=== PATIENT | male | born 1995 | race Two or more races ===

== ENCOUNTER 2024-10-03 09:01 | Inpatient (IN) | payer MEDICAID ==
[~2024-10-03] VITALS: Ht 175.3 cm; Wt 101.0 kg
[2024-10-03] MEDS: InsuLIN REG 1unit/0.01ml Soln (100units/ml) IV ONE (09:15)
--- NOTE | 2024-10-03 09:23 | ED.PDOC ---
History of Present Illness HPI Comments 28 y/o M, presents to the ED for CC of high blood sugar reading. Patient states, he has been experiencing uncontrolled diabetes resulting in hyperglycemia with associated blurred vision x1year. Patient endorses on, losing his medical insurance coverage and being unable to obtain his prescription medications as a result. Patient comments on new symptoms of penile abrasions surrounding the tip of his penis. Patient relays current 8/10 pain. Patient denies fever, body- aches, back pain, flank pain, hematuria, or dysuria. Patient denies social history. No other associated symptom's, modifiers, recent injuries or sick contacts at this time. Time Seen by MD: 09:10 Reviewed Notes: Nurses Notes, Medications, Allergies Allergies: Coded Allergies: NO KNOWN ALLERGIES (Unverified , 10/03/24) Information Source: Patient Mode of Arrival: Ambulatory Severity: Moderate Timing: Months Duration: Since onset Prehospital treatment: None Past Medical History PAST MEDICAL HISTORY: DM Surgical History: Cholecystectomy Surgical History (Other): LEFT FOOT Family History Family History: Unknown Social History Smoker: Non-Smoker Alcohol: Denies ETOH Use Drugs: Denies Drug Use Lives In: Home Constitutional: denies: chills, diaphoresis, fatigue, fever, malaise, sweats, weakness, others EENTM: denies: blurred vision, double vision, ear bleeding, ear discharge, ear drainage, ear pain, ear ringing, eye pain, eye redness, hearing loss, mouth pain, mouth swelling, nasal discharge, nose bleeding, nose congestion, nose pa in, photophobia, tearing, throat pain, throat swelling, voice changes, others Respiratory: denies: cough, hemoptysis, orthopnea, SOB at rest, shortness of breath, SOB with excertion, stridor, wheezing, others Cardiovascular: denies: chest pain, dizzy spells, diaphoresis, Dyspnea on exertion, edema, irregular heart beat, left arm pain, lightheadedness, palpitations, PND, syncope, others Gastrointestinal: denies: abdomen distended, abdominal pain, blood streaked bowels, constipated, diarrhea, dysphagia, difficulty swallowing, hematemesis, melena, nausea, poor appetite, poor fluid intake, rectal bleeding, rectal pain, vomiting, others Genitourinary: denies: burning, dysuria, flank pain, frequency, hematuria, incontinence, penile discharge, penile sore, pain, testicle pain, testicle swelling, urgency, others Neurological: denies: dizziness, fainting, headache, left sided numbness, left sided weakness, numbness, paresthesia, pre-existing deficit, right sided numbness, right sided weakness, seizure, speech problems, tingling, tremors, weakness, others Musculoskeletal: denies: back pain, gout, joint pain, joint swelling, muscle pain, muscle stiffness, neck pain, others Integumetry: denies: bruises, change in color, change in hair/nails, dryness, laceration, lesions, lumps, rash, wounds, others Allergic/Immunocompromised: denies: Difficulty Healing, Frequent Infections, Hives, Itching, others Hematologic/Lymphatic: denies: anemia, blood clots, easy bleeding, easy bruising, swollen glands, others Endocrine: denies: excessive hunger, excessive sweating, excessive thirst, excessive urination, flushing, intolerance to cold, intolerance to heat, unexplained weight gain, unexplained weight loss, others Psychiatric: denies: anxiety, bipolar disorder, depression, hopeless, panic disorder, schizophrenia, sleepless, suicidal, others All Other Systems: Reviewed and Negative Physical Exam General Appearance: Moderate Distress HEENT: Normal ENT Inspection, Pharynx Normal, TMs Normal Neck: Full Range of Motion, Non-Tender, Normal, Normal Inspection Respiratory: Chest Non-Tender, Lungs Clear, No Accessory Muscle Use, No Respiratory Distress, Normal Breath Sounds Cardiovascular: No Edema, No JVD, No Murmur, No Gallop, Normal Peripheral Pulses, Tachycardia Breast Exam: Deferred Gastrointestinal: No Organomegaly, Non Tender, No Pulsatile Mass, Normal Bowel Sounds, Soft Genitalia: Deferred Pelvic: Deferred Rectal: Deferred Extremities: No calf tenderness, Normal capillary refill, Normal inspection, Normal range of motion, Non-tender, No pedal edema Musculoskeletal : Apperance: Normal Neurologic: Alert, sprinkling system installer II-XII nml as Tested, No Motor Deficits, Normal Affect, Normal Mood, No Sensory Deficits Cerebellar Function: Normal Reflexes: Normal Skin: Dry, Normal Color, Warm Peripheral Pulses: 3+ Radial (R), 3+ Radial (L) Lymphatic: No Adenopathy Was a procedure done? Was a procedure done?: No Differential Dx Considerations may include: HYPERGLYCEMIA, DKA, UNCONTROLLED DM1 X-Ray, Labs, Meds, VS Vital Signs Date Time Temp Pulse Resp B/P (MAP) Pulse Ox O2 Delivery O2 Flow Rate FiO2 10/03/24 09:33 Room Air* 0 21 10/03/24 09:20 97.8 104 18 137/90 (106) 97 Lab Test 10/03/24 09:30 10/03/24 09:26 10/03/24 09:11 10/03/24 09:10 Range/Units White Blood Count 5.5 4.4-10.8 10^3/uL Red Blood Count 5.60 4.5-5.90 10^6/uL Hemoglobin 17.2 13.5-17.5 g/dL Hematocrit 46.5 41.0-53.0 % Mean Corpuscular Volume 83.0 80.0-100.0 fL Mean Corpuscular Hemoglobin 30.8 28.0-32.0 pg Mean Corpuscular Hemoglobin Concent 37.1 H 32.0-36.0 g/dL Red Cell Distribution Width 12.8 11.8-14.3 % Platelet Count 184 140-450 10^3/uL Mean Platelet Volume 9.8 6.9-10.8 fL Neutrophils (%) (Auto) 70.4 37.0-80.0 % Lymphocytes (%) (Auto) 21.8 10.0-50.0 % Monocytes (%) (Auto) 6.7 0.0-12.0 % Eosinophils (%) (Auto) 0.6 0.0-7.0 % Basophils (%) (Auto) 0.5 0.0-2.0 % Neutrophils # (Auto) 3.9 1.6-8.6 10 ^3/uL Lymphocytes # (Auto) 1.2 0.4-5.4 10 ^3/uL Monocytes # (Auto) 0.4 0-1.3 10 ^3/uL Eosinophils # (Auto) 0 0-0.8 10 ^3/uL Basophils # (Auto) 0 0-0.2 10 ^3/uL Nucleated Red Blood Cells 0.3 % POC Glucose 506 *H 456 *H 502 *H 70-106 mg/dl Test 10/03/24 09:08 Range/Units Sodium Level 128 L 136-145 mmol/L Potassium Level 3.8 3.5-5.1 mmol/L Chloride Level 93 L 98-107 mmol/L Carbon Dioxide Level < 10 *L 20-31 mmol/L Anion Gap 25.67292 H 5-15 Blood Urea Nitrogen 12 9-23 mg/dL Creatinine 1.27 0.700-1.30 mg/dL Glomerular Filtration Rate Calc 79 >90 mL/min BUN/Creatinine Ratio 9.4 L 10.0-20.0 Serum Glucose 485 *H 74-106 mg/dL Calcium Level 10.2 8.7-10.4 mg/dL Current Medications Medications (Trade) Dose Ordered Sig/Yash Route Start Time Stop Time Status Last Admin Sodium Chloride 1,000 ml @ 1,000 mls/hr Q1H ONCE IV 10/03/24 09:15 10/03/24 10:14 DC 10/03/24 09:30 Sodium Chloride 1,000 ml @ 1,000 mls/hr Q1H ONCE IV 10/03/24 10:15 10/03/24 11:14 10/03/24 10:08 Patient alert. Blood sugar elevated. He does not take care himself. Vitals stable. He has been almost a year since he used insulin. Establish intravenous access. Was given fluids. Was given insulin. Explained to the patient. Continue monitoring. Time of 1ST Reevaluation: 09:40 Reevaluation 1ST: Unchanged Patient Education/Counseling: Diagnosis, Treatment Family Education/Counseling: No Family Present Additional Information I reviewed the following notes from patient's past medical history: NONE The following tests were ordered, and results were reviewed by me: CBC, BMP I discussed treatment and results with medical personnel and: PATIENT Departure 1 Departure Time of Disposition: 09:26 Impression: Primary Impression: Diabetic ketoacidosis Qualified Codes: E13.10 - Other specified diabetes mellitus with ketoacidosis without coma Disposition: ADMITTED INPATIENT Admit to: Med Surg Condition: Guarded Critical Care Note Critical Care Time?: Yes (90 min-critical care time only) Critical care comment: Started insulin Stability Stability form required: No Heart Score Heart Score: Heart Score Response (Comments) Value History N/A 0 EKG N/A 0 Age N/A 0 Risk Factors N/A 0 Troponin N/A 0 Total 0 I personally scribed for CHAD LEMON MD ([email or web address]) on 10/03/24 at 09:23. Electronically submitted by Lori Araujo ([email or web address]). I personally scribed for CHAD LEMON MD ([email or web address]) on 10/03/24 at 09:32. Electronically submitted by Lori Araujo ([email or web address]). CHAD LEMON MD Oct 03, 2024 09:23
[2024-10-03] MEDS: SODIUM CHLORIDE 0.9% 1,000 ML IV ONE ×2 (09:30→10:08)
[2024-10-03 10:15] LABS: Basophils # (auto) 0 10 ^3/uL (0-0.2); Eosinophils # (auto) 0 10 ^3/uL (0-0.8); Lymphocytes # (auto) 1.2 10 ^3/uL (0.4-5.4); Monocytes # (auto) 0.4 10 ^3/uL (0-1.3); White Blood Cell 5.5 10^3/uL (4.4-10.8)
[2024-10-03 10:18] LABS: Basophils % (auto) 0.5 % (0.0-2.0); Eosinophils % (auto) 0.6 % (0.0-7.0); Hematocrit 46.5 % (41.0-53.0); Hemoglobin 17.2 g/dL (13.5-17.5); Lymphocytes % (auto) 21.8 % (10.0-50.0); Mean Corpuscular Hemoglobin 30.8 pg (28.0-32.0); Monocytes % (auto) 6.7 % (0.0-12.0); Neutrophils # (auto) 3.9 10 ^3/uL (1.6-8.6); Neutrophils % (auto) 70.4 % (37.0-80.0); Nucleated Red Blood Cells % 0.3 %; Platelet Count (auto) 184 10^3/uL (140-450); Red Cell Distribution Width 12.8 % (11.8-14.3)
[2024-10-03 10:19] LABS: Mean Corpuscular Hgb Conc. 37.1 g/dL (32.0-36.0)
[2024-10-03 10:24] LABS: Potassium 3.8 mmol/L (3.5-5.1)
[2024-10-03 10:25] LABS: Anion Gap 25.00001 (5-15); Calcium 10.2 mg/dL (8.7-10.4)
[2024-10-03 10:30] LABS: BUN/Creatinine Ratio 9.4 (10.0-20.0); Blood Urea Nitrogen 12 mg/dL (9-23)
[2024-10-03 10:44] LABS: Chloride 93 mmol/L (98-107); Sodium 128 mmol/L (136-145)
[2024-10-03 10:48] LABS: Carbon Dioxide < 10 mmol/L (20-31)
[2024-10-03 10:49] LABS: Glucose 485 mg/dL (74-106)
[2024-10-03] MEDS ORDERED: DEXTROSE (50%) 50ML SYRG IV PRN (11:00)
[2024-10-03] MEDS: INSULIN LANTUS (GLARGINE) 1 /0.01ml (100units/ml) SC ONE (11:07)
[2024-10-03] MEDS: INSULIN DRIP 100 UNIT/100ML 100 ML IV SCH (11:27)
[2024-10-03 11:34] LABS: Base Excess -2.5 mmol/L (-2.0-3.0)
[2024-10-03] MEDS ORDERED: ONDANSETRON HCL 4 MG/2 ML VIAL IV PRN (13:00)
--- NOTE | 2024-10-03 13:04 | DVHHP2 ---
History of Present Illness Reason for Visit: High blood sugar History of Present Illness Jalen Davis JR is a 20-year-old male with past medical history of diabetes who presents to the ED with hyperglycemia and blurred vision x1 week. Patient reports that he ran out of his insulin and strips 1 year ago due to no insurance from a loss of job. He states that he was with [employer]. Patient also reports penile abrasions on the foreskin in which he is uncircumcised. Patient reports that he has 1 partner which is his fiancee whom he lives with. Patient denies any trauma or injury to the site, denies fevers, chills, weakness, lightheadedness, dizziness, increased thirst, shortness of breath, chest pain, abdominal pain, nausea, vomiting, and diarrhea. Endocrine: Diabetes Past Surgical History: None Family History: DM, Other (Mom and dad with diabetes) Smoke: Quit ALCOHOL: occassional Drugs: None Lives: with Family Domestic Violence: Neg Review of Systems Constitutional: No: Fever, Chills, Sweats, Weakness, Malaise, Other Eyes: Vision change; No: Pain, Conjunctivae inflammation, Eyelid inflammation, Other, Redness ENT: No: Ear pain, Ear discharge, Nose pain, Nose discharge, Nose congestion, Mouth pain, Mouth swelling, Throat pain, Throat swelling, Other Respiratory: No: Cough, Dry, Shortness of breath, SOB with excertion, Wheezing, Hemoptysis, Pleuritic Pain, Sputum, Wheezing, Other Cardiovascular: No: Chest Pain, Palpitations, Orthopnea, Paroxysmal Noc. Dyspnea, Edema, Lt Headedness, Other Gastrointestinal: No: Nausea, Vomiting, Abdominal Pain, Diarrhea, Constipation, Melena, Hematochezia, Other Genitourinary: No Dysuria; Frequency; No Incontinence, No Hematuria, No Retention, No Other Musculoskeletal: No: other, neck pain, shoulder pain, arm pain, back pain, hand pain, leg pain, foot pain Skin: Other (Penile abrasions); No: Rash, Lesions, Jaundice, Bruising Neurological: No: Weakness, Numbness, Incoordination, Change in speech, Confusion, Seizures, Other Allergies: Coded Allergies: NO KNOWN ALLERGIES (Unverified , 10/03/24) Medications Current Medications Medications Dose Ordered Sig/Yash Route Start Time Stop Time Status Last Admin Dose Admin Insulin Human (Reg)/Sodium Chloride 100 ml @ 0.5 mls/hr Q24H IV 10/03/24 11:00 10/03/24 11:27 4 MLS/HR Diagnostic Test (Pha) 1 strip Q90MIN 10/03/24 12:00 Dextrose 50 ml PRN PRN IV 10/03/24 11:00 Insulin Glargine 15 units DAILY SC 10/04/24 10:00 Exam Vital Signs Vital Signs Date Time Temp Pulse Resp B/P (MAP) Pulse Ox O2 Delivery O2 Flow Rate FiO2 10/03/24 11:09 98.2 83 18 135/90 (105) 97 98.2 10/03/24 09:33 Room Air* 0 21 General Appearance: Alert, Oriented X3, Cooperative, No acute distress HEENT: Atraumatic, PERRLA, EOMI, Mucous membr. moist/pink Respiratory: Clear to auscultation, Normal air movement Cardiovascular: Normal S1, Normal S2, No murmurs Abdominal: Normal bowel sounds, Soft, No tenderness, No hepatospenomegaly, No masses Extremities: No clubbing, No cyanosis, No edema, Normal pulses, No tenderne ss/swelling Neuro: Normal gait, Normal speech, Strength at 5/5 X4 ext, Normal tone, Sensation intact Psych/Mental Status: Mental status NL, Mood NL Labs/Xrays Labs Test 10/03/24 11:26 10/03/24 11:00 10/03/24 10:49 10/03/24 09:30 Range/Units Blood Gas Specimen Type Arterial Blood Gas Sample Site Right radial Blood Gas Patient Temperature 37.0 Arterial Blood Date Drawn [id number] Arterial Blood pH 7.436 7.350-7.450 Arterial Blood Partial Pressure CO2 31.2 L 35.0-48.0 mmHg Arterial Blood Partial Pressure O2 91.9 83.0-108.0 mmHg Arterial Blood HCO3 20.5 L 21.0-28.0 mmol/L Arterial Blood Oxygen Saturation 97.2 94.0-98.0 % Arterial Blood Base Excess -2.5 L -2.0-3.0 mmol/L Arterial Blood Oxyhemoglobin 96.1 94.0-98.0 % Arterial Blood Carboxyhemoglobin 0.6 0.5-1.5 % Arterial Blood Methemoglobin 0.5 0.0-1.5 % Souleymane Test Yes Blood Gas Total Hemoglobin 16.00 13.5-17.5 g/dL Blood Gas Liter Flow 0.00 Blood Gas Modality Room air FiO2 % 21.0 POC Glucose 351 H 70-106 mg/dl Beta-Hydroxybutyric Acid 0.841 H < 0.4 mmol/L White Blood Count 5.5 4.4-10.8 10^3/uL Red Blood Count 5.60 4.5-5.90 10^6/uL Hemoglobin 17.2 13.5-17.5 g/dL Hematocrit 46.5 41.0-53.0 % Mean Corpuscular Volume 83.0 80.0-100.0 fL Mean Corpuscular Hemoglobin 30.8 28.0-32.0 pg Mean Corpuscular Hemoglobin Concent 37.1 H 32.0-36.0 g/dL Red Cell Distribution Width 12.8 11.8-14.3 % Platelet Count 184 140-450 10^3/uL Mean Platelet Volume 9.8 6.9-10.8 fL Neutrophils (%) (Auto) 70.4 37.0-80.0 % Lymphocytes (%) (Auto) 21.8 10.0-50.0 % Monocytes (%) (Auto) 6.7 0.0-12.0 % Eosinophils (%) (Auto) 0.6 0.0-7.0 % Basophils (%) (Auto) 0.5 0.0-2.0 % Neutrophils # (Auto) 3.9 1.6-8.6 10 ^3/uL Lymphocytes # (Auto) 1.2 0.4-5.4 10 ^3/uL Monocytes # (Auto) 0.4 0-1.3 10 ^3/uL Eosinophils # (Auto) 0 0-0.8 10 ^3/uL Basophils # (Auto) 0 0-0.2 10 ^3/uL Nucleated Red Blood Cells 0.3 % Test 10/03/24 09:08 Range/Units Sodium Level 128 L 136-145 mmol/L Potassium Level 3.8 3.5-5.1 mmol/L Chloride Level 93 L 98-107 mmol/L Carbon Dioxide Level < 10 *L 20-31 mmol/L Anion Gap 25.53414 H 5-15 Blood Urea Nitrogen 12 9-23 mg/dL Creatinine 1.27 0.700-1.30 mg/dL Glomerular Filtration Rate Calc 79 >90 mL/min BUN/Creatinine Ratio 9.4 L 10.0-20.0 Serum Glucose 485 *H 74-106 mg/dL Calcium Level 10.2 8.7-10.4 mg/dL Assessment/Plan Assessment/Plan Assessment/Plan: DKA with uncontrolled DM Type 2 Penile abrasions Rule out STI Labs Insulin drip CT head UDS UA NS 2 L given in ED ABG Beta hydroxy UA A1c Clotrimazole topical STI workup HIV 1 and 2 RPR Gonorrhea chlamydia screening nurse FEN/PPX Diet ivf PUD ppx not indicated no hx of GERD DVT ppx not indicated patient ambulating Admit patient to ICU No home medications to reconcile Discussed plan of care with patient and nurse Plan discussed with: Patient My Orders Orders - NIRAV INGRAM SR. [employer] Procedure Category Date Status Time Basic Metabolic Panel LAB 10/03/24 Logged 18:00 Basic Metabolic Panel LAB 10/03/24 Logged 22:00 Basic Metabolic Panel LAB 10/04/24 Verified 02:00 Basic Metabolic Panel LAB 10/04/24 Verified 06:00 Basic Metabolic Panel LAB 10/04/24 Verified 10:00 Basic Metabolic Panel LAB 10/04/24 Verified 14:00 Basic Metabolic Panel LAB 10/04/24 Verified 18:00 Basic Metabolic Panel LAB 10/04/24 Verified 22:00 Basic Metabolic Panel LAB 10/05/24 Verified 02:00 Basic Metabolic Panel LAB 10/05/24 Verified 06:00 Basic Metabolic Panel LAB 10/05/24 Verified 10:00 Basic Metabolic Panel LAB 10/05/24 Verified 14:00 Basic Metabolic Panel LAB 10/05/24 Verified 18:00 Basic Metabolic Panel LAB 10/05/24 Verified 22:00 Clotrimazole 1% PHA 10/03/24 Transmitted Topical Cream 22:00 Clotrimazole 1% PHA 10/03/24 Transmitted Topical Cream 13:00 Hemoglobin A1c LAB 10/03/24 Verified 12:53 Admit ADMIT 10/03/24 Transmitted 12:53 Allergies ESTEBAN 10/03/24 Transmitted 12:53 Code Status CODE 10/03/24 Transmitted 12:53 0.9% Ns 1000 Ml PHA 10/03/24 Transmitted 13:00 Ondansetron Hcl PHA 10/03/24 Transmitted (Zofran) 13:00 Complete Blood Count LAB 10/04/24 Verified 04:00 Comprehensive LAB 10/04/24 Verified Metabolic Panel 04:00 Cardiac DIET 10/03/24 Transmitted Diet-2gna,Lofat,Lochol Lunch Acetaminophen Tablet PHA 10/03/24 Transmitted (Tylenol Tablet) 13:00 Date of Service: Oct 03, 2024 Billing Provider: NIRAV INGRAM Common Visit Codes: [id number] INP/OBS CARE (HIGH) NIRAV INGRAM Oct 03, 2024 13:04
[2024-10-03] MEDS: ACCU-CHEK COMFORT CURVE STRIP VI SCH (13:21)
[2024-10-03] MEDS: SODIUM CHLORIDE 0.9% 1,000 ML IV SCH (14:26)
[2024-10-03] MEDS: CLOTRIMAZOLE 1 % CREAM 15GM TOP ONE (14:29)
--- NOTE | 2024-10-03 15:34 | DVH ---
EXAM: CT HEAD WITHOUT CONTRAST INDICATION: blurry vision TECHNIQUE: CT of the head without intravenous contrast. Radiation Dose : 1. Head: CT Dose: CTDI volume is 63.18 mGy. Dose-length product is 1138.92 mGy*cm The dose indicators for CT are the volume Computed Tomography (CT) Dose Index (CTDIvol) and the Dose Length Product (DLP), and are measured in units of mGy and mGy-cm, respectively. These indicators are not patient dose, but values generated from the CT scanner acquisition factors. The report includes radiation exposure data for exposures received during this examination. COMPARISON: None FINDINGS: There is no evidence of acute intracranial hemorrhage, extra-axial collection, mass effect, midline s hift, herniation or hydrocephalus. The ventricles, sulci and cisterns are age appropriate. The philip-white differentiation is intact. The visualized paranasal sinuses and mastoid air cells are clear. The surrounding soft tissues and osseous structures are unremarkable. IMPRESSION: No acute intracranial abnormality. Radiation optimization: All CT scans at this facility use at least one of these dose optimization sandip hniques: automated exposure control mA and/or kV adjustment per patient size (includes targeted exam s where dose is matched to clinical indication) or iterative reconstruction.
[2024-10-03 19:20] VITALS: PULSE 82; RESP 10; O2SAT 98
[2024-10-03 19:22] LABS: Chloride 102 mmol/L (98-107); Potassium 3.7 mmol/L (3.5-5.1); Sodium 136 mmol/L (136-145)
[2024-10-03 19:23] LABS: Anion Gap 8 (5-15); Calcium 9.6 mg/dL (8.7-10.4); Carbon Dioxide 26 mmol/L (20-31)
[2024-10-03 19:28] LABS: BUN/Creatinine Ratio 18.4 (10.0-20.0); Blood Urea Nitrogen 16 mg/dL (9-23)
[2024-10-03 19:31] LABS: Glucose 187 mg/dL (74-106)
[2024-10-03] MEDS: ACETAMINOPHEN 325 MG TAB PO PRN (20:24)
[2024-10-03 21:31] LABS: Urine Bacteria None Seen /hpf (None Seen)
[2024-10-03] MEDS: CLOTRIMAZOLE 1 % CREAM 15GM TOP SCH (21:55)
[2024-10-03 21:56] LABS: Urine Blood Negative /uL (Negative); Urine Clarity Clear (Clear); Urine Color Yellow (Yellow); Urine Mucus FEW (None Seen); Urine Protein, UAD Negative (Negative); Urine Specific Gravity 1.037 (1.001-1.035); Urine Squamous Epithelial Cell None Seen /hpf (<5); Urine Urobilinogen Normal (Negative); Urine WBC 1 /HPF (0-3); Urine pH 5.5 (5.0-9.0)
[2024-10-03] MEDS ORDERED: ACCU-CHEK COMFORT CURVE STRIP VI SCH (22:00)
[2024-10-03 22:01] LABS: Amphetamine Screen, Urine Neg (NEGATIVE); Barbiturate Scree,Urine Neg (NEGATIVE); Benzodiazephine Screen, Urine Neg (NEGATIVE); Cannabinoid Screen, Urine Neg (NEGATIVE); Cocaine Screen, Urine Neg (NEGATIVE); Opiate Scree,Urine Neg (NEGATIVE); Phencyclidine Screen, Urine Neg (NEGATIVE)
[2024-10-03 22:33] LABS: Chloride 103 mmol/L (98-107); Sodium 136 mmol/L (136-145)
[2024-10-03 22:34] LABS: Anion Gap 15 (5-15); Calcium 9.2 mg/dL (8.7-10.4)
[2024-10-03 22:39] LABS: BUN/Creatinine Ratio 11.1 (10.0-20.0); Blood Urea Nitrogen 13 mg/dL (9-23)
[2024-10-03 22:40] LABS: Carbon Dioxide 18 mmol/L (20-31); Glucose 269 mg/dL (74-106); Potassium 3.4 mmol/L (3.5-5.1)
[2024-10-04 02:25] LABS: Chloride 104 mmol/L (98-107); Potassium 3.6 mmol/L (3.5-5.1); Sodium 137 mmol/L (136-145)
[2024-10-04 02:26] LABS: Anion Gap 11 (5-15); Calcium 9.6 mg/dL (8.7-10.4); Carbon Dioxide 22 mmol/L (20-31)
[2024-10-04 02:31] LABS: BUN/Creatinine Ratio 11.2 (10.0-20.0); Blood Urea Nitrogen 12 mg/dL (9-23)
[2024-10-04 02:37] LABS: Glucose 212 mg/dL (74-106)
[2024-10-04 05:15] LABS: Basophils # (auto) 0 10 ^3/uL (0-0.2); Basophils % (auto) 0.7 % (0.0-2.0); Eosinophils # (auto) 0 10 ^3/uL (0-0.8); Eosinophils % (auto) 0.8 % (0.0-7.0); Hematocrit 41.3 % (41.0-53.0); Hemoglobin 14.6 g/dL (13.5-17.5); Lymphocytes # (auto) 1.4 10 ^3/uL (0.4-5.4); Lymphocytes % (auto) 30.7 % (10.0-50.0); Mean Corpuscular Hemoglobin 29.4 pg (28.0-32.0); Mean Corpuscular Hgb Conc. 35.4 g/dL (32.0-36.0); Monocytes # (auto) 0.3 10 ^3/uL (0-1.3); Monocytes % (auto) 6.8 % (0.0-12.0); Neutrophils # (auto) 2.8 10 ^3/uL (1.6-8.6); Nucleated Red Blood Cells % 0.3 %; Platelet Count (auto) 145 10^3/uL (140-450); Red Blood Cells 4.98 10^6/uL (4.5-5.90); Red Cell Distribution Width 13.1 % (11.8-14.3); White Blood Cell 4.6 10^3/uL (4.4-10.8)
[2024-10-04 05:48] LABS: Albumin 4.2 g/dL (3.2-4.8); Alkaline Phosphatase 75 U/L (46-116); Anion Gap 13 (5-15); Aspartate Aminotransferase 22 U/L (13-40); Calcium 9.5 mg/dL (8.7-10.4); Carbon Dioxide 22 mmol/L (20-31); Chloride 104 mmol/L (98-107); Potassium 3.6 mmol/L (3.5-5.1); Sodium 139 mmol/L (136-145)
[2024-10-04 05:49] LABS: Bilirubin, Total 0.6 mg/dL (0.2-1.0); Total Protein 6.2 g/dL (5.7-8.2)
[2024-10-04 06:01] LABS: Alanine Aminotransferase 46 U/L (7-40); Glucose 167 mg/dL (74-106)
[2024-10-04 06:04] LABS: BUN/Creatinine Ratio 12.4 (10.0-20.0); Blood Urea Nitrogen 12 mg/dL (9-23)
[2024-10-04 07:07] LABS: RPR Non Reactive (Non Reactive)
[2024-10-04 07:55] VITALS: PULSE 75; RESP 16; O2SAT 97
[2024-10-04] MEDS ORDERED: DEXTROSE (50%) 50ML SYRG IV PRN (08:30)
[2024-10-04] MEDS ORDERED: INSULIN LANTUS (GLARGINE) 1 /0.01ml (100units/ml) SC SCH (10:00)
[2024-10-04] MEDS: ACCU-CHEK COMFORT CURVE STRIP VI SCH (11:47)
[2024-10-04] MEDS: InsuLIN REG 1unit/0.01ml Soln (100units/ml) SC SCH (11:50)
[2024-10-04] MEDS: INSULIN LANTUS (GLARGINE) 1 /0.01ml (100units/ml) SC SCH (11:55)
[2024-10-04 13:05] LABS: Carbon Dioxide 20 mmol/L (20-31)
[2024-10-04 13:07] LABS: Anion Gap 14 (5-15); Chloride 101 mmol/L (98-107); Sodium 135 mmol/L (136-145)
[2024-10-04 13:08] LABS: Glucose 241 mg/dL (74-106); Potassium 3.6 mmol/L (3.5-5.1)
[2024-10-04 13:09] LABS: BUN/Creatinine Ratio 7.8 (10.0-20.0)
[2024-10-04 13:10] LABS: Blood Urea Nitrogen 8 mg/dL (9-23)
[2024-10-04 14:28] LABS: Chloride 101 mmol/L (98-107); Potassium 3.7 mmol/L (3.5-5.1)
[2024-10-04 14:29] LABS: Anion Gap 12 (5-15); Carbon Dioxide 21 mmol/L (20-31); Sodium 134 mmol/L (136-145)
[2024-10-04 14:34] LABS: BUN/Creatinine Ratio 7.3 (10.0-20.0)
[2024-10-04 14:56] LABS: Blood Urea Nitrogen 8 mg/dL (9-23); Glucose 326 mg/dL (74-106)
[2024-10-04 18:39] LABS: Chloride 102 mmol/L (98-107); Potassium 3.5 mmol/L (3.5-5.1)
[2024-10-04 18:40] LABS: Anion Gap 12 (5-15); Carbon Dioxide 21 mmol/L (20-31)
[2024-10-04 18:46] LABS: BUN/Creatinine Ratio 6.9 (10.0-20.0)
[2024-10-04 18:49] LABS: Blood Urea Nitrogen 7 mg/dL (9-23); Glucose 214 mg/dL (74-106); Sodium 135 mmol/L (136-145)
--- NOTE | 2024-10-04 20:09 | DVHPN2 ---
Subjective in bed resting Changes from previous H/P or p: No Changes Eyes: No Pain; Vision change; No Conjunctivae inflammation, No Eyelid inflammation, No Other, No Redness ENT: No Ear pain, No Ear discharge, No Nose pain, No Nose discharge, No Nose congestion, No Mouth pain, No Mouth swelling, No Throat pain, No Throat swelling, No Other Cardiovascular: No Chest Pain, No Palpitations, No Orthopnea, No Paroxysmal Noc. Dyspnea, No Edema, No Lt Headedness, No Other Respiratory: No Cough, No Dry, No Shortness of breath, No SOB with excertion, No Wheezing, No Hemoptysis, No Pleuritic Pain, No Sputum, No Other Gastrointestinal: No Nausea, No Vomiting, No Abdominal Pain, No Diarrhea, No Constipation, No Melena, No Hematochezia, No Other Genitourinary: No Dysuria; Frequency; No Incontinence, No Hematuria, No Retention, No Other Musculoskeletal: No other, No neck pain, No shoulder pain, No arm pain, No back pain, No hand pain, No leg pain, No foot pain Skin: No Rash, No Lesions, No Jaundice, No Bruising; Other (Penile abrasions) Objective Vitals Vital Signs Date Time Temp Pulse Resp B/P (MAP) Pulse Ox O2 Delivery O2 Flow Rate FiO2 10/04/24 18:28 84 20 96 Room Air 10/04/24 12:57 97.8 150/84 (106) 97.8 10/04/24 07:55 0 21 Intake/Output Intake and Output 10/04/24 07:00 Intake Total 2336 ml Balance 2336 ml Intake IV Total 2336 ml General Appearance: Alert, Oriented X3 HEENT: Atraumatic Lungs: Clear to auscultation Cardiovascular: Regular rate Medications Current Medications Medications Dose Ordered Sig/Yash Route Start Time Stop Time Status Last Admin Dose Admin Clotrimazole 1 applic Q12HR TOP 10/03/24 22:00 10/04/24 10:01 1 APPLIC Sodium Chloride 1,000 ml @ 120 mls/hr Q8H20M IV 10/03/24 13:00 10/04/24 14:05 120 MLS/HR Ondansetron HCl 4 mg Q4HP PRN IV 10/03/24 13:00 Acetaminophen 650 mg Q6HP PRN PO 10/03/24 13:00 10/04/24 06:09 650 MG Diagnostic Test (Pha) 1 strip ACHS 10/04/24 11:30 10/04/24 17:00 1 STRIP Insulin Human Regular ACHS SC 10/04/24 11:30 10/04/24 17:00 3 UNITS Dextrose 50 ml BS PRN IV 10/04/24 08:30 Insulin Glargine 15 units DAILY@1000 SC 10/04/24 10:00 10/04/24 11:55 15 UNITS Laboratory Results Laboratory Tests 10/04/24 04:33 10/04/24 18:06 Chemistry Test 10/03/24 22:00 10/04/24 01:59 10/04/24 04:33 10/04/24 12:07 Calcium Level 9.2 mg/dL (8.7-10.4) 9.6 mg/dL (8.7-10.4) 9.5 mg/dL (8.7-10.4) 10.0 mg/dL (8.7-10.4) Albumin 4.2 g/dL (3.2-4.8) Total Protein 6.2 g/dL (5.7-8.2) Test 10/04/24 13:52 10/04/24 18:06 Calcium Level 10.0 mg/dL (8.7-10.4) 10.0 mg/dL (8.7-10.4) LFT Test 10/04/24 04:33 Alanine Aminotransferase (ALT) 46 U/L (7-40) H Alkaline Phosphatase 75 U/L (46-116) Aspartate Amino Transferase (AST) 22 U/L (13-40) Total Bilirubin 0.6 mg/dL (0.2-1.0) Urinalysis Test 10/03/24 20:55 Urine Color Yellow (Yellow) Urine Clarity Clear (Clear) Urine pH 5.5 (5.0-9.0) Urine Specific Edison 1.037 (1.001-1.035) Urine Protein Negative (Negative) Urine Ketones 1+ (Negative) H Urine Blood Negative /uL (Negative) Urine Nitrite Negative (Negative) Urine Bilirubin Negative (Negative) Urine Urobilinogen Normal mg/dL (Negative) Urine Leukocyte Esterase Negative /uL (Negative) Urine RBC 8 /hpf (0 - 3) Urine Microscopic WBC 1 /HPF (0-3) Urine Squamous Epithelial Cells None seen /hpf (<5) Urine Bacteria None seen /hpf (None Seen) Urine Mucus Few (None Seen) Urine Glucose 4+ mg/dL (Normal) H Assessment/Plan Assessment/Plan DKA with uncontrolled DM Type 2 Penile abrasions Rule out STI anion gap closed long acting insulin diet FEN/PPX Diet ivf PUD ppx not indicated no hx of GERD DVT ppx not indicated patient ambulating Plan discussed with: Patient Date of Service: Oct 04, 2024 Billing Provider: ISRAEL CONTI MD Common Visit Codes: [id number] INP/OBS CARE(HIGH) ISRAEL CONTI MD Oct 04, 2024 20:09
[2024-10-04 20:22] VITALS: PULSE 78; RESP 18; O2SAT 96
[2024-10-04 21:00] VITALS: BP 125/64; PULSE 78; RESP 18; TEMP 98.1; O2SAT 94
[2024-10-04 23:40] LABS: Chloride 102 mmol/L (98-107); Potassium 3.6 mmol/L (3.5-5.1)
[2024-10-04 23:41] LABS: Anion Gap 11 (5-15); Carbon Dioxide 22 mmol/L (20-31)
[2024-10-04 23:42] LABS: Calcium 9.8 mg/dL (8.7-10.4)
[2024-10-04 23:44] LABS: Sodium 135 mmol/L (136-145)
[2024-10-04 23:47] LABS: BUN/Creatinine Ratio 9.2 (10.0-20.0); Blood Urea Nitrogen 10 mg/dL (9-23); Glucose 186 mg/dL (74-106)
[2024-10-05 00:56] VITALS: BP 110/59; PULSE 73; RESP 18; TEMP 98.1; O2SAT 97
[2024-10-05 02:51] LABS: Chloride 102 mmol/L (98-107)
[2024-10-05 02:52] LABS: Anion Gap 9 (5-15); Carbon Dioxide 25 mmol/L (20-31); Potassium 3.3 mmol/L (3.5-5.1); Sodium 136 mmol/L (136-145)
[2024-10-05 02:53] LABS: Calcium 9.6 mg/dL (8.7-10.4)
[2024-10-05 02:58] LABS: Blood Urea Nitrogen 10 mg/dL (9-23)
[2024-10-05 03:10] LABS: Glucose 218 mg/dL (74-106)
[2024-10-05 04:46] VITALS: BP 111/58; PULSE 70; RESP 16; TEMP 98.1; O2SAT 97
[2024-10-05 08:10] VITALS: PULSE 75; RESP 18; O2SAT 95
[2024-10-05 09:00] VITALS: BP 128/60; PULSE 75; RESP 18; TEMP 97.7; O2SAT 95
[2024-10-05 09:02] LABS: Chloride 102 mmol/L (98-107); Sodium 136 mmol/L (136-145)
[2024-10-05 09:03] LABS: Anion Gap 11 (5-15); Calcium 9.5 mg/dL (8.7-10.4); Carbon Dioxide 23 mmol/L (20-31)
[2024-10-05 09:08] LABS: BUN/Creatinine Ratio 8.3 (10.0-20.0)
[2024-10-05 09:11] LABS: Blood Urea Nitrogen 8 mg/dL (9-23); Glucose 205 mg/dL (74-106); Potassium 3.4 mmol/L (3.5-5.1)
[2024-10-05 11:38] LABS: Chloride 100 mmol/L (98-107); Potassium 3.6 mmol/L (3.5-5.1)
[2024-10-05 11:39] LABS: Anion Gap 9 (5-15); Calcium 9.8 mg/dL (8.7-10.4); Carbon Dioxide 25 mmol/L (20-31)
[2024-10-05 11:44] LABS: BUN/Creatinine Ratio 8.8 (10.0-20.0); Blood Urea Nitrogen 9 mg/dL (9-23); Sodium 134 mmol/L (136-145)
[2024-10-05 11:45] LABS: Glucose 244 mg/dL (74-106)
[2024-10-05 12:49] VITALS: TEMP 36.5
[2024-10-05] MEDS ORDERED: INSU1INJ26 SC (14:30)
[2024-10-05] MEDS ORDERED: LANC-347 XX (14:30)
[2024-10-05] MEDS ORDERED: BLOO1KIT60 XX (14:30)
[2024-10-06 11:07] LABS: Chlamydia Trachomatis, NAA Negative (Negative); Neisseria gonorrhoeae, NAA Negative (Negative)
== END 2024-10-05 13:30 | disposition home or self-care (01) | DRG 420 ==
LOC: ER 09:01 → OVERFLOW 12:53 → WEST WING 10-04 20:03
PROVIDERS: ADMIT Hospitalist; ATTEND Hospitalist
DX: E11.10 Type 2 diabetes mellitus with ketoacidosis without coma (principal); E87.1 Hypo-osmolality and hyponatremia; S30.812A Abrasion of penis, initial encounter; X58.XXXA Exposure to other specified factors, initial encounter; Z91.148 Patient's other noncompliance with medication regimen for other reason; Z83.3 Family history of diabetes mellitus; Z90.49 Acquired absence of other specified parts of digestive tract; Y93.89 Activity, other specified; Y92.89 Other specified places as the place of occurrence of the external cause; Y99.8 Other external cause status
CPT/HCPCS: 36415; 36600; 70450; 80048; 80053; 80307; 81001; 82010; 82805; 82962; 83036; 85025; 86592; 86703; 96365; 96372; 99291; 99292; G0378; J1815